=== PATIENT | female | born 1970 | race Caucasian/White ===

== ENCOUNTER 2021-02-14 10:25 | Emergency (ER) | payer BC ==
[~2021-02-14] VITALS: Ht 167.6 cm; Wt 72.3 kg
[2021-02-14] MEDS ORDERED: ondansetron/PF 4mg/2ml inj IV ONE (10:50)
[2021-02-14] MEDS ORDERED: morphine 4 MG/ML inj SYRINge IV ONE (10:50)
--- NOTE | 2021-02-14 11:00 | NUR ---
FIRST CONTACT WITH PT, PRESENTS TO ED WTIH BILAT LOWER ABD PAIN AND MULT BLOODY STOOLS. PT CHANGED INTO GOWN, PIV PLACED. PROVIDER AT BEDSIDE. Kathleen/ANDREE FINN.
[2021-02-14 11:12] LABS: ALANINE AMINOTRANSFERASE 67 U/L (12-78); ALBUMIN 4.4 G/DL (3.4-5.0); ALBUMIN/GLOBULIN RATIO 1.2 (1.1-1.5); ALKALINE PHOSPHATASE 85 IU/L (46-116); ANION GAP 10 (8-16); ASPARTATE AMINO TRANSFERASE 42 U/L (10-37); BLOOD UREA NITROGEN 23 MG/DL (7-18); CHLORIDE 98 MMOL/L (99-107); CREATININE 0.82 MG/DL (0.40-0.90); GLUCOSE 117 MG/DL (70-104); LIPASE 75 U/L (73-393); SODIUM 139 MMOL/L (135-145); TOTAL CARBON DIOXIDE 30.8 MMOL/L (24-32); eGFR 74 ML/MIN
[2021-02-14 11:15] LABS: BASOPHILS % (AUTO) 0.3 % (0-1); EOSINOPHILS % (AUTO) 0 % (0-6); HEMATOCRIT 36.4 % (35.0-45.0); HEMOGLOBIN 12.9 g/dl (12.0-16.0); LYMPHOCYTES # (AUTO) 0.9 X10'3 (1.1-4.8); LYMPHOCYTES % (AUTO) 6.9 % (21-51); MEAN CORPUSCULAR HEMOGLOBIN 33.4 PG (27.0-31.0); MEAN CORPUSCULAR HGB CONC 35.5 g/dL (33.0-36.5); MEAN CORPUSCULAR VOLUME 94.2 FL (78-98); MEAN PLATELET VOLUME 9.2 FL (7.4-10.4); MONOCYTES # (AUTO) 0.6 X10'3 (0-0.9); MONOCYTES % (AUTO) 4.5 % (2-12); NEUTROPHILS # (AUTO) 11.9 X10'3 (1.8-7.7); NEUTROPHILS % (AUTO) 88.3 % (42-75); PLATELET COUNT 216 X10'3 (140-440); RED BLOOD COUNT 3.87 X10'6 (4.20-5.60); RED CELL DISTRIBUTION WIDTH 12.7 % (11.5-14.5); WHITE BLOOD COUNT 13.5 X10'3 (4.5-11.0)
[2021-02-14 11:21] LABS: CALCIUM 9.6 MG/DL (8.5-10.1)
[2021-02-14] MEDS ORDERED: potassium Cl 10 mEq/100mL bag IV ONE (11:30)
[2021-02-14 11:49] LABS: CLARITY,URINE CLEAR (Clear); COLOR,URINE YELLOW (Yellow); GLUCOSE, URINE NEGATIVE (Neg); KETONES,URINE TRACE mg/dl (Neg); LEUKOCYTE ESTERASE ,URINE NEGATIVE (Neg); NITRITES, URINE NEGATIVE (Neg); OCCULT BLOOD,URINE SMALL (Neg); PH,URINE 8.5 (4.8-8.0); PROTEIN,URINE NEGATIVE (Neg); UROBILINOGEN,URINE 0.2 E.U/dL (0.2-1.0)
[2021-02-14 11:50] LABS: URINE HCG NEGATIVE (NEG)
[2021-02-14 11:57] LABS: UA COLLECTION TYPE NON-SPECIFIED
[2021-02-14 11:58] LABS: BACTERIA,URINE 1+ /HPF (Neg); MUCUS STRANDS MODERATE /LPF (Neg); SQUAMOUS EPITHELIAL CELL,UR MANY /LPF (FEW); WBC,URINE 0-4 /HPF (0-4)
[2021-02-14] MEDS ORDERED: iohexol 300mg/ml 100ml inj. ONE (12:02)
--- NOTE | 2021-02-14 12:10 | NUR ---
PT TO CT VIA WHEELCHAIR
--- NOTE | 2021-02-14 12:25 | NUR ---
RETURNED FROM CT WITHOUT INCIDENT
[2021-02-14] MEDS ORDERED: levoFLOXACIN-Levaquin 500mg/D5 100 ML IV ONE (13:20)
[2021-02-14] MEDS ORDERED: metroNIDAZOLE-Flagyl 500mg/NS 100 ML IV ONE (13:20)
[2021-02-14] MEDS ORDERED: morphine 2 MG/ML inj. syringe IV ONE (14:15)
[2021-02-14] MEDS ORDERED: ondansetron 4mg rapidly disintigrating tab PO ONE ×2 (14:15→15:10)
[2021-02-14] MEDS ORDERED: CIPR-113 PO (14:21)
[2021-02-14] MEDS ORDERED: HYDR-3965 PO (14:21)
[2021-02-14] MEDS ORDERED: ONDA4TAB6 PO (14:21)
[2021-02-14] MEDS ORDERED: METR-159 PO (14:21)
[2021-02-14] MEDS ORDERED: HYDROcodone/acetaminophen 5mg/325mg tablet PO ONE (15:10)
--- NOTE | 2021-02-14 15:30 | NUR ---
PT STILL REPORTING PAIN AFTER IV MORPHINE, ADDITIONAL NORCO GIVEN PER PROVIDER ORDER.
[2021-02-14 16:00] VITALS: BP 118/83
== END 2021-02-14 16:14 | disposition home or self-care (01) ==
LOC: ER 10:26
DX: K52.9 Noninfective gastroenteritis and colitis, unspecified (principal); D25.9 Leiomyoma of uterus, unspecified; F17.200 Nicotine dependence, unspecified, uncomplicated; Z88.0 Allergy status to penicillin; Z79.899 Other long term (current) drug therapy; Z85.3 Personal history of malignant neoplasm of breast
CPT/HCPCS: 36415; 74177; 80053; 81001; 81025; 83690; 85025; 96365; 96367; 96375; 99285; J1956; J2270; J3480; J3490; Q9967